=== PATIENT | male | born 1990 | race African-American/Black ===

== ENCOUNTER 2024-10-26 12:37 | Emergency (ER) | payer MEDICAID ==
[~2024-10-26] VITALS: Ht 185.4 cm; Wt 68.0 kg
[2024-10-26 12:45] VITALS: BP 143/91; TEMP 36.9; O2SAT 100
[2024-10-26 12:59] VITALS: PULSE 81; RESP 18; O2SAT 98
== END 2024-10-26 16:10 | disposition left against medical advice (07) ==
LOC: ER 12:37
DX: H00.13 Chalazion right eye, unspecified eyelid (principal)
CPT/HCPCS: 99281; Z7610 ×5; A4606